=== PATIENT | male | born 1985 | race Caucasian/White ===

== ENCOUNTER 2016-09-21 13:47 | Emergency (ER) | payer SELFPAY | END 2016-09-21 13:51 | disposition home or self-care (01) | LOC: CFTX 13:47 | DX: S05.01XA Injury of conjunctiva and corneal abrasion without foreign body, right eye, initial encounter (principal); F17.210 Nicotine dependence, cigarettes, uncomplicated; X58.XXXA Exposure to other specified factors, initial encounter | CPT/HCPCS: 99283 ==

== ENCOUNTER 2016-11-01 13:59 | Emergency (ER) | payer SELFPAY | END 2016-11-01 14:30 | disposition home or self-care (01) | LOC: CFTX 13:59 → CED 13:59 → CFTX 14:24 | DX: L08.0 Pyoderma (principal); F17.210 Nicotine dependence, cigarettes, uncomplicated; Z86.14 Personal history of Methicillin resistant Staphylococcus aureus infection | CPT/HCPCS: 99282 ==